=== PATIENT | female | born 1960 | race Caucasian/White ===

== ENCOUNTER 2025-02-28 01:48 | Day surgery (SDC) | payer BC, SELFPAY ==
[2025-02-06 12:21] VITALS: BMI 30.4
--- OUTSIDE RECORDS SUMMARY | 2025-02-28 01:52 | XMS_ITS | Clinical Summary ---
Author Organization [employer] [facility] Address [address] [facility] [place] [address] Phone Care Team Providers Care Twisting Frame Changer Name Role Phone Kalia Flores MD Primary Care Provider [phone] Allergies Active Allergy Reactions Criticality Noted Date Comments Erythromycin Other (See Comments) 11/01/2012 yeast Sulfa (Sulfonamide Antibiotics) Other (See Comments) 11/01/2012 Vascular headaches Medications MULTIVITAMIN ORAL Take by mouth. Active GLUC/CHND/OM3/DHA /EPA/FISH/STR (GLUCOSAMINE CHONDROITIN PLUS ORAL) Take by mouth. Active Active Problems No known active problems Immunizations Immunization Administration Dates Next Due Influenza Seasonal Unspecified Formulation IM ,05/10/2013 Family History Medical History Relation Name Comments Cancer Father Lung Cancer Father Cancer Mother Lung Cancer Mother Relation Name Status Comments Father Mother Social History Tobacco Use Types Packs/Day Years Used Date Smoking Tobacco: Never Alcohol Use Standard Drinks/Week Comments No 0 (1 standard drink = 0.6 oz pur e alcohol) Comments No Sex and Gender Information Value Date Recorded Sex Assigned at Not on file Legal Sex Female 5:14 PM CDT Gender Identity Not on file Sexual Orientation Not on file Last Filed Vital Signs Vital Sign Reading Time Taken Comments Blood Pressure 108/73 11/01/2012 5:20 PM CDT Pulse 64 11/01/2012 5:20 PM CDT Temperature 36.3 C (97.4 F) 11/01/2012 5:20 PM CDT Respiratory Rate 16 11/01/2012 5:20 PM CDT Oxygen Saturation 100% 11/01/2012 5:20 PM CDT Inhaled Oxygen Concentration - - Weight 72.6 kg (160 lb) 11/01/2012 5:20 PM CDT Height 172.7 cm (5' 8) 11/01/2012 5:20 PM CDT Body Mass Index 24.33 11/01/2012 5:20 PM CDT Plan of Treatment Health Maintenance Due Date Last Done Comments DTAP/TDAP/TD VACCINES (1 - Tdap) 1981 HPV/Cotest (21-29) 12/14/1983 CERVICAL CANCER SCREENING 1992 HPV/Cotest (30-65) 1992 PAP SMEAR 1992 BREAST CANCER SCREENING 2002 COLORECTAL SCREENING 12/14/2007 Colorectal Cancer Screening 12/14/2007 FIT-DNA Q 3 years 12/14/2007 FIT/FOBT Q 1 year 12/14/2007 Flex Sig/CT Colonography Q 5 years 12/14/2007 ZOSTER VACCINE (1 of 2) 2012 INFLUENZA VACCINE (#1) 2025 05/10/2013, 2012 RSV VACCINE (60+ or ) (1 - 1-dose 75+ series) 2037 Insurance Member Subscriber Plan / Payer (Ef fective 2021-Present) Name:Lolly Sahu Relation to Subscriber:Spouse Name:JUANITO SAHU Date of :1961 (Home) Address: [address] [place] [address] Payer ID:[id number] (NAIC) Type:PPO Address: [facility] [id number] [place] [id number] Care Teams Twisting Frame Changer Relationship Specialty Start Date End Date Kalia Flores MD PCP - General Family Practice 11/01/12
--- OUTSIDE RECORDS SUMMARY | 2025-02-28 01:52 | XMS_ITS | Clinical Summary ---
Author Organization [facility] [address] [place] [address] Address [address] [place] [address] Care Team Providers Care Tunneller Name Role Phone Loida Granados DO Primary Care Provider [phone] Allergies Active Allergy Reactions Criticality Noted Date Comments Sulfanilamide Medications GLUCOSAMINE HCL/CHONDR TINSLEY A NA (GLUCOSAMINE-CH ONDROITIN) 167-133 mg capsule 0 0 7 Active Additional Information Patient not taking.Reported on 04/11/2018 multivitamin tablet tablet take 1 tablet by oral route every day with food 0 0 7 Active Additional Information Patient not taking.Reported on 04/11/2018 cetirizine (ZyrTEC) 10 mg tabletIndicatio ns:Allergic Conjunctivitis, Allergic Rhinitis,Atopic Dermatitis,Seas onal Allergic Rhinitis Take 1 tablet (10 mg total) by mouth daily. 30 tablet 1 8 Active fluticasone (FLONASE) 50 mcg/actuation nasal spray Administer 2 sprays into each nostril daily. 16 g 5 8 Active Active Problems Problem Noted Date Diagnosed Date Acute recurrent pansinusitis 04/20/2018 Assessment & Plan (04/20/2018 8:35 AM CDT): Complete antibiotics and other meds as prescribed Take OTC decongestants for congestion- Sudafed/Mucinex Motrin/Tylenol for pain/fever If you have high blood pressure or any kidney disease use Tylenol only. Take an Antihistamines like Zyrtec or Claritin or Rosanna daily at bedtime for the next 2-3 weeks. Can take Benadryl at bedtime for the next 3-4 days for immediate relief of runny nose and may help with sinus headache. Try saline nasal spray irrigations 2-4 times a day or try using Jaelyn pot as directed daily then use your Flonase or other corticosteroid nasal spray every day to decrease the swelling and inflammation in your nasal cavities. Drink plenty of water & get plenty of rest A humidifier may also help with congestion Follow up with your PCP in 3-5 days if you are not getting better Obesity (BMI 30-39.9) 04/20/2018 Assessment & Plan (04/20/2018 12:35 PM CDT): Obesity is unchanged. Discussed the patient's BMI. The BMI is above average; BMI management plan is completed. General weight loss/lifestyle modification strategies discussed (elicit support from others; identify saboteurs; non-food rewards, etc). Diet= low-carb Limit white bread, rice, pasta, potatoes, juice, energy drinks, coffee creamers with sugar, sugar sodas, candy, cake, cookies, ice cream. Be more careful with starchy vegetables like corn, carrots, and fruits. Stay away from processed foods, fast foods, fried foods. The cornerstone of this diet is lean grilled meats, green salads or cooked greens, fat-free milk, cottage cheese, nuts like wyciagk-lohaoex-wtiyafj, protein bars with 10-15 g of protein and 20-30 g of carbohydrate. Choose whole grain breads and pastas, brown rice, sweet potatoes, read onions--these whole grains absorb more slowly thus blood sugar does not surge so high so quickly. Avoid drinking juice, eat a piece of fruit instead. Mitral valve prolapse 01/06/2014 Overview (11/27/2016): Mitral valve prolapse Encounters Date Type Department Care Team Description 02/24/2025 10:14 AM CDT - 02/24/2025 11:59 PM CDT Hospital Encounter [facility] [address] [place] [id number] Screening mammogram, encounter for Discharge Disposition: Discharge to home or self care 02/24/2025 10:07 AM CDT - 02/24/2025 11:59 PM CDT Hospital Encounter [facility] [address] [place] [id number] Chronic cough Discharge Disposition: Discharge to home or self care from Last 3 Months Immunizations Immunization Administration Dates Next Due Influenza, Quadrivalent, Spl it, Preservative Free, Intramuscular 04/22/2016,05/09/2013 Influenza, Trivalent, IM (MDV) 06/26/2012 Influenza, Trivalent, Preservative Free, Intramu scular 04/23/2014 Influenza, Unspecified 05/23/2017 Surgical History Surgery Date Site/Laterality Comments HYSTERECTOMY 08/23/2001 - 08/22/2002 Hysterectomy Medical History Medical History Date Comments Heart valve disease Heart valve disorder; Comments: MARSHA 09/07/2014 -Mitral valve prolapse Family History Medical History Relation Name Comments COPD Father COPD; Kidney disease Father Renal disease ; Cause of : Renal disease Lung cancer Father Cancer, lung; / Cancer -lung; Cause of : Cancer -lung Other Father Hepatitis; Hypothyroidism Mother Hypothyroidis m; Lung cancer Mother Cancer -lung; C ause of : Cancer -lung Relation Name Status Comments Father Mother (Age 72) Social History Tobacco Use Types Packs/Day Years Used Date Smoking Tobacco: Never Smokeless Tobacco: Never Alcohol Use Standard Drinks/Week Comments No 0 (1 standard drink = 0.6 oz pur e alcohol) PHQ-2 Answer Date Recorded PHQ-2 Score 0 04/13/2019 Comments No Sex and Gender Information Value Date Recorded Sex Assigned at Not on file 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 Gender Identity Not on file Sexual Orientation Not on file Obstetrics History Para Term AB IAB SAB Ectopic Multiple Livin g Live Births 1 1 1 Date Outcome GA Total Labor Labor/2nd/3rd Weight Sex Type Anes PTL Renée A1 A5 Name Clin Term Last Filed Vital Signs Vital Sign Reading Time Taken Comments Blood Pressure 100/72 04/20/2018 8:24 AM CDT Pulse 80 04/20/2018 8:24 AM CDT Temperature 36.8 C (98.3 F) 04/20/2018 8:24 AM CDT Respiratory Rate 16 04/20/2018 8:24 AM CDT Oxygen Saturation 97% 04/20/2018 8:24 AM CDT Inhaled Oxygen Concentration - - Weight 90.3 kg (199 lb) 02/24/2025 10:16 AM CDT Height 172.7 cm (5' 8) 02/24/2025 10:16 AM CDT Body Mass Index 30.26 02/24/2025 10:16 AM CDT Plan of Treatment Health Maintenance Due Date Last Done Comments Hepatitis C Screening 1962 DTaP/Tdap/Td Vaccine (1 - Tdap) 1973 Hepatitis B Screening 1980 Regular Well Visit/Exam 18-64 1980 Zoster Vaccine (1 of 2) 2012 Depression Screening 04/20/2019 04/20/2018, 04/11/2018, 04/11/2018 Covid-19 Vaccine (3 - season) 2024 01/11/2022, 06/05/2021 Influenza Vaccine (#1) 2025 7, 04/22/2016, 04/23/2014, Additional history exists Breast Cancer Screening-Mammogram 02/24/2026 02/24/2025, 02/06/2023, 01/31/2022, Additional history exists Colon Cancer Screening-Colonoscopy 07/22/2028 07/22/2018 Colon Cancer Screening-CT Colonography Discontinued 07/22/2018 Colon Cancer Screening-DNA Stool Discontinued 07/22/2018 Colon Cancer Screening-FIT Discontinued 07/22/2018 Colon Cancer Screening-Sigmoidoscopy Discontinued 07/22/2018 Pneumococcal vaccine <65 Aged Out No longer eligible based on patient's age to complete this topic Procedures Procedure Name Priority Date/Time Associated Diagnosis Comments SCREENING MAMMOGRAM BILATERAL W BOGDAN Schedule Routine, Read Routine (OP Routine) 02/24/2025 10:22 AM CDT Screening mammogram, encounter for XR CHEST PA LATERAL 2 VIEWS Schedule Routine, Read Routine (OP Routine) 02/24/2025 10:14 AM CDT Chronic cough COLONOSCOPY Routine 07/22/2018 from Last 3 Months or Most Recently Relevant to Health Maintenance Results * Screening Mammogram Bilateral W Bogdan (02/24/2025 10:22 AM CDT) Anatomical Region Laterality Modality Breast Bilateral Mammography Impressions 02/24/2025 8:24 PM CDT Bilateral No evidence of malignancy in either breast. OVERALL BI-RADS FINAL ASSESSMENT: 1 - Negative RECOMMENDATION: Recommend bilateral annual screening mammography. Narrative 02/24/2025 8:24 PM CDT EXAMINATION: Screening Mammogram Bilateral W Bogdan: 02/24/2025 COMPARISON: Relevent prior studies available at the time of interpretation were reviewed, including the most recent mammogram on: 02/06/2023. TECHNIQUE: Mammography was performed with 2D and digital breast tomosynthesis (DBT) images. CAD was utilized. BREAST PARENCHYMAL COMPOSITION: There are scattered areas of fibroglandular density. FINDINGS: Bilateral There is no suspicious mass, calcification, or architectural distortion in either breast. us Self Screening Mammogram IMG MAMMO PROCEDURES Fi nal Result * XR Chest PA Lateral 2 Views (02/24/2025 10:14 AM CDT) Anatomical Region Laterality Modality Body, Chest N/A Computed Radiogr aphy 02/24/2025 10:2 4 PM CDT Narrative 02/24/2025 10:24 PM CDT EXAM DESCRIPTION: XR CHEST PA LATERAL 2 VIEWS REASON FOR STUDY: cough Cough for 6-8 weeks. Non smoker Parents both had hx of lung cancer. TECHNIQUE: There are 2 radiographic view(s) of the chest. COMPARISON: No prior. FINDINGS: LUNGS: Pulmonary vascularity appears normal. No confluent infiltrate or effusion. Costophrenic angles are sharp. HEART/MEDIASTINUM: Cardiac silhouette normal in size. Mediastinal and hilar contours appear normal. LINES/TUBES: None. BONES: No acute osseous abnormality. IMPRESSION: No acute cardiopulmonary abnormality. THIS IS AN ELECTRONICALLY VERIFIED FINAL REPORT 02/24/2025 10:24 PM - Electronically signed by John Castillo M.D. MJ: SANTIAGO Report ID: [id number] Reading Location: [id number] Procedure Note John Castillo MD - 02/24/2025 EXAM DESCRIPTION: XR CHEST PA LATERAL 2 VIEWS REASON FOR STUDY: cough Cough for 6-8 weeks. Non smoker Parents both had hx of lung cancer. TECHNIQUE: There are 2 radiographic view(s) of the chest. COMPARISON: No prior. FINDINGS: LUNGS: Pulmonary vascularity appears normal. No confluent infiltrate or effusion. Costophrenic angles are sharp. HEART/MEDIASTINUM: Cardiac silhouette normal in size. Mediastinal andhilar contours appear normal. LINES/TUBES: None. BONES: No acute osseous abnormality. IMPRESSION: No acute cardiopulmonary abnormality. THIS IS AN ELECTRONICALLY VERIFIED FINAL REPORT 02/24/2025 10:24 PM - Electronically signed by John Castillo M.D. MJ: SANTIAGO Report ID: [id number] Reading Location: [place] [id number] Loida Granados DO IMG XR PROCEDURES Final Result * Colonoscopy (07/22/2018) Anatomical Region Laterality Modality Other Historical Provider ENDOSCOPY PROCEDURES Josseline l Result from Last 3 Months or Most Recently Relevant to Health Maintenance Insurance [facility] ANTHEM ACCESS CHOICE [facility] CHOICE PLUS ANTHEM ACCESS CHOICE Care Teams Tunneller Relationship Specialty Start Date End Date Loida Granados DO [address] [place] [id number] PCP - General Internal Medicine 02/20/25
--- OUTSIDE RECORDS SUMMARY | 2025-02-28 01:52 | XMS_ITS | Referral Summary ---
Author Organization [facility] [address] Address [address] [place] [address] Care Team Providers Care Outreach Assistant Name Role Phone Loida Granados DO Primary Care Provider Encounters Date Type Department Care Team Description 02/24/2025 10:07 AM CDT - 02/24/2025 11:59 PM CDT Hospital Encounter [address] [address] Chronic cough Discharge Disposition: Discharge to home or self care 02/24/2025 10:14 AM CDT - 02/24/2025 11:59 PM T Hospital Encounter [address] [address] Screening mammogram, encounter for Discharge Disposition: Discharge to home or self care from Last 3 Months Allergies Active Allergy Reactions Criticality Noted Date [...] greens, fat-free milk, cottage cheese, nuts like skdwadl-navitch-oyhclwg, protein bars with 10-15 g of protein and 20-30 g of carbohydrate. Choose whole grain breads and pastas, brown rice, sweet potatoes, read onions--these whole grains absorb more slowly thus blood sugar does not surge so high so quickly. Avoid drinking juice, eat a piece of fruit instead. Mitral valve prolapse 01/06/2014 Overview (11/27/2016): Mitral valve prolapse Immunizations Immunization Administration Dates Next Due Influenza, Quadrivalent, Spl it, Preservative Free, Intramuscular 04/22/2016,05/09/2013 Influenza, Trivalent, IM (MDV) 06/26/2012 Influenza, Trivalent, Preservative Free, Intramu scular 04/23/2014 Influenza, Unspecified 05/23/2017 Social History Tobacco Use Types Packs/Day Years Used Date Smoking Tobacco: Never Smokeless Tobacco: Never Alcohol Use Standard Drinks/Week Comments No 0 (1 standard drink = 0.6 oz pur e alcohol) PHQ-2 Answer Date Recorded PHQ-2 Score 0 04/13/2019 Comments No Sex and Gender Information Value Date Recorded Sex Assigned at Not on file 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 MJ: SANTIAGO Report ID: [id number] Reading Location: [id number] Procedure Note John Castillo MD - 02/24/2025 [...] John Castillo M.D. MJ: SANTIAGO Report ID: [id number] Reading Location: [id number] Loida Granados DO IMG XR PROCEDURES Final Result * Colonoscopy (07/22/2018) Anatomical Region Laterality Modality Other Historical Provider ENDOSCOPY PROCEDURES Josseline l Result from Last 3 Months or Most Recently Relevant to Health Maintenance Insurance COUNT INCLUDES [facility] AETNA HEALTHCARE HMO ANTH ACCESS CHOICE [facility] CHOICE PLUS [facility] ACCESS CHOICE Care Teams Outreach Assistant Relationship Specialty Start Date End Date Loida Granados DO [address] [address] PCP - General Internal Medicine 02/20/25
[2025-02-28 09:31] VITALS: BP 117/58; PULSE 63; RESP 16; TEMP 36.8; O2SAT 100
[2025-02-28] MEDS: LACTATED RINGERS 1,000 ML 150 ML IV CONT (09:35)
--- NOTE | 2025-02-28 09:57 | WPDANESEPPF ---
Anes - Initial Pre Proc Eval Procedure: Operation Date: 02/28/25 10:45 Proposed Procedures p Esophagogastroduodenoscopy - Ty Parker MD Date/Time: 02/28/25 09:57 Surgeon: Ty Parker MD Pre Op Diagnosis: Dysphagia, unspecified Patient Data Age: 64 Gender: F Height: 1.72 m Weight: 89.7 kg Last Vital Signs Temp 98.2 F 02/28/25 09:31 Pulse 63 02/28/25 09:31 Resp 16 02/28/25 09:31 BP 117/58 L 02/28/25 09:31 Pulse Ox 100 02/28/25 09:31 O2 Del Method Room Air 02/28/25 09:31 Allergies Allergy/AdvReac Type Severity Reaction Status Date / Time Sulfa (Sulfonamide AdvReac Unknown VASCULAR Verified 02/06/25 12:19 Antibiotics) HEADACHES Home Medications ?Medication ?Instructions ?Recorded ?Confirmed ?Type glucosamine-chondroitin 1 tablet PO DAILY 02/06/25 02/28/25 History multivitamin (Daily Multi-Vitamin 1 tablet PO DAILY 02/06/25 02/28/25 History tablet) Patient hx anesthesia problems: none Family hx anesthesia problems: none Results Review: All pre-operative results and documents have been reviewed as part of the pre-operative evaluation. [facility] Social History Social History Smoking status: Former smoker Tobacco type: cigarettes Alcohol intake: current Substance use: never Living arrangements: with family Spiritual care concerns: No Anes - Eval Final PreProcedure Day of Procedure 02/28/25 09:57 Patient weight: obese Lungs: normal air movement Airway: Mallampati scale class II Neurological: alert and oriented Last oral intake: >/= 8 hours ASA classification: II Emergent: no Anesthetic plan: proceed Anesthesia type and monitoring: general GIVS and standard monitoring Results Review: All pre-operative results and documents have been reviewed as part of the pre-operative evaluation. Obesity, hx of dysphagia. Informed Consent: The patient's anesthetic plan and its attendant risks and benefits were discussed with the patient/family/POA. Questions were solicited and answers provided to the satisfaction of the patient/family/POA.
--- NOTE | 2025-02-28 10:09 | PM.HPGS ---
History of Present Illness History of Present Illness Consent: Risks, benefits, and alternatives have been discussed and questions answered. Patient agrees to proceed with procedure. Chief complaint: Dysphagia, unspecified Narrative: Lolly Sahu is a 64 year old female here for first EGD, had in two different occasions food getting stuck in esophagus. Review of Systems Review of Systems: All systems reviewed & are unremarkable except as noted in HPI and below PMFSH Past Medical History Medical History (Updated 02/28/25 @ 10:10 by Ty Parker MD) Dysphagia Social History Social History Smoking status: Former smoker Tobacco type: cigarettes Alcohol intake: current Substance use: never Living arrangements: with family Spiritual care concerns: No Meds Home Medications and Allergies Home Medications ?Medication ?Instructions ?Recorded ?Confirmed ?Type glucosamine-chondroitin 1 tablet PO DAILY 02/06/25 02/28/25 History multivitamin (Daily Multi-Vitamin 1 tablet PO DAILY 02/06/25 02/28/25 History tablet) Allergies Allergy/AdvReac Type Severity Reaction Status Date / Time Sulfa (Sulfonamide AdvReac Unknown VASCULAR Verified 02/06/25 12:19 Antibiotics) HEADACHES Vital Signs Vital Signs - 24 hr 02/28/25 09:31 Temperature 98.2 F Pulse Rate 63 Respiratory Rate 16 Blood Pressure 117/58 L Pulse Oximetry 100 Oxygen Delivery Room Air Exam Const: General: comfortable and no acute distress HENMT: Face/Nose/Sinus: Normal nares present Eyes: General: appearance normal, both eyes and all related structures Neck: Neck: no JVD Resp: Auscultation: clear to auscultation bilaterally Cardio: Rate: regular rate Rhythm: regular rhythm GI: Inspection: non-distended GI Palp: Yes Soft to palpation Skin: General skin exam: normal color Neuro: General: gait normal Speech: normal speech Extrem: General: normal to inspection Psych: Mental Status: mental status grossly normal Assessment and Plan Assessment and plan (1) Dysphagia: Code(s): R13.10 - Dysphagia, unspecified Status: Acute Assessment and Plan: egd with bx
[2025-02-28 10:16] VITALS: BP 91/49; PULSE 59; RESP 18; O2SAT 96
[2025-02-28 10:26] VITALS: BP 93/47; PULSE 55; RESP 17; O2SAT 100
[2025-02-28 10:36] VITALS: BP 99/45; PULSE 56; RESP 18; O2SAT 100
== END 2025-02-28 10:41 | disposition home or self-care (01) ==
PROVIDERS: PCP Internal Medicine; Referring Provider Internal Medicine; Visit Provider Internal Medicine Gastroenterology
PROC: 0DJ08ZZ Inspection of Upper Intestinal Tract, Via Natural or Artificial Opening Endoscopic (ICD-10-PCS; CPT 43249; principal; 2025-02-28 10:45)
DX: K22.2 Esophageal obstruction (principal); K44.9 Diaphragmatic hernia without obstruction or gangrene; E66.9 Obesity, unspecified; Z68.30 Body mass index [BMI] 30.0-30.9, adult; Z87.891 Personal history of nicotine dependence
CPT/HCPCS: 43249; C1726; J2704; J7120